=== PATIENT | female | born 1955 | race Caucasian/White ===

== ENCOUNTER 2017-07-13 19:37 | Emergency (ER) | payer MEDICAID, OTHER ==
[~2017-07-13] VITALS: Ht 162.6 cm; Wt 71.2 kg
[~2017-07-13 19:37] MED LIST: AMOXICILLIN500 MG ORAL; AZITHROMYCIN250 MG ORAL; CLARITIN10 MG ORAL; CYMBALTA20 MG ORAL; IBUPROFEN600 MG ORAL; PSEUDOEPHEDRINE30 MG PO
[2017-07-13] MEDS ORDERED: PROPRANOLOL HCL20 MG ORAL (19:46)
[2017-07-13] MEDS ORDERED: CYMBALTA30 MG ORAL (19:46)
[2017-07-13 20:05] VITALS: BP 142/62
[2017-07-13] MEDS ORDERED: LORATADINE10 M2 PO (20:19)
[2017-07-13] MEDS ORDERED: PREDNISONE50 MG ORAL (20:19)
--- NOTE | 2017-07-13 20:19 | Emergency Room Report ---
History of Present Illness General Chief Complaint: Skin Rash/Abscess Source: Patient Present Illness HPI 61 y/o female c/o rash x several months. States that she went to PCP who did not know what was wrong with the patient. Patient saw industrial waste inspector a couple weeks ago and was told she had allergic dermatitis due to using feminine wipes on her skin. States she was given steroid cream which improved her sxs but states her sxs are wide spread along her body and not just in one spot. States she ran out of cream and is requesting additional medication. Patient has a hx of asthma that has improved over the past 3 weeks from becoming vegan and that she does feel she has some wheezing but not difficulty breathing. Not taking asthma medications. Denies any current n/v/f/c/d, abd pain, back pain, neck pain , photophobia, phonophobia, CP, SOB or headache. Allergies: Coded Allergies: No Known Allergies (Unverified , 10/27/14) Patient History Past Medical History: asthma Past Surgical History: other Pertinent Family History: none Last Menstrual Period: n/a Now: No Immunizations: UTD Reviewed Nursing Documentation: PMH: Agreed, PSxH: Agreed Nursing Documentation-PMH Past Medical History: No History, Except For Hx Asthma: Yes Review of Systems All Other Systems: negative except mentioned in HPI Physical Exam Vital Signs Date Time Temp Pulse Resp B/P (MAP) Pulse Ox O2 Delivery O2 Flow Rate FiO2 07/13/17 19:39 98.1 69 16 149/55 95 Room Air Sp02 EP Interpretation: reviewed, normal General Appearance: no apparent distress, alert, GCS 15, non-toxic Head: normocephalic, atraumatic Eyes: bilateral eye normal inspection, bilateral eye PERRL ENT: hearing grossly normal, normal pharynx, no angioedema, normal voice Neck: full range of motion, supple/symm/no masses Respiratory: chest non-tender, normal breath sounds, speaking full sentences, wheezing - small wheeze LLL Cardiovascular #1: regular rate, rhythm, no edema Musculoskeletal: back normal, gait/station normal, normal range of motion, non- tender, calf tenderness Neurologic: alert, oriented x3, responsive, motor strength/tone normal, sensory intact, speech normal Psychiatric: judgement/insight normal, memory normal, mood/affect normal, no suicidal/homicidal ideation Skin: normal color, warm/dry, well hydrated, rash - erythematous rash along face, trunk and upper extremities. Medical Decision Making PA Attestation Dr. Chi is my supervising physician with whom patient management has been discussed with. Diagnostic Impression: Primary Impression: Allergic dermatitis ER Course Pt. presents to the ED c/o rash Ddx considered but are not limited to dermatitis, insect sting, viral exanthem, herpez zoster, cellulitis, abscess Vital signs: are WNL, pt. is afebrile H&PE are most consistent with allergic dermatitis ORDERS: none required at this time, the diagnosis is clinical ED INTERVENTIONS: none required at this time. DISCHARGE: At this time pt. is stable for d/c to home. Will provide printed patient care instructions, and any necessary prescriptions. Care plan and follow up instructions have been discussed with the patient prior to discharge. Last Vital Signs Date Time Temp Pulse Resp B/P (MAP) Pulse Ox O2 Delivery O2 Flow Rate FiO2 07/13/17 20:05 98.2 72 16 142/62 97 Room Air Status: unchanged Disposition: HOME, SELF-CARE Condition: Stable Scripts Prednisone* (PREDNISONE*) 50 Mg Tablet 50 MG ORAL DAILY, #5 TAB 0 Refills Prov: SABRY,TAMEEM P.A. 07/13/17 Loratadine (LORATADINE) 10 Mg Tablet 10 MG PO DAILY for 14 Days, #14 TAB Prov: SABRY,TAMEEM P.A. 07/13/17 Patient Instructions: Rash Additional Instructions: Take medications as directed. Follow up with PCP within 5-7 days. Advised patient to avoid using or touching whatever might have caused their rash. Patient is to protect their skin from anything that might irritate it or cause an allergy (ie wearing gloves if they need to work with harsh soaps). Advised patient to try using soothing skin products to help with the itching and discomfort which include: unscented, thick moisturizing cream, anti-itch lotion or cream, and a special kind of bath called an oatmeal bath. Advised patient to go to the ER if they experience severe symptoms like pain, widespread swelling, and large blisters, oozing, or crusting of the skin. Patient is to return sooner if their rash does not go away within 2 weeks, or if it gets worse. The most common symptoms of anaphylaxis are hives (urticaria) and swelling of the skin (angioedema), which occur in 80 to 90 percent of reactions. Respiratory symptoms occur in about 70 percent of reactions, and are especially common in people who also have asthma or another chronic respiratory disease. Extremely low blood pressure causing lightheadedness, dizziness, blurred vision, or loss of consciousness (passing out) occurs in up to about 70 percent of reactions. If you experience any of these symptoms which include SOB and throat swelling, please use your Epi-Pen as directed and call 911. DANIEL ENGLAND Jul 13, 2017 20:19
[2017-07-13 20:30] VITALS: BP 142/62
== END 2017-07-13 20:40 | disposition home or self-care (01) ==
LOC: EMR 20:34
DX: L23.9 Allergic contact dermatitis, unspecified cause (principal); J45.909 Unspecified asthma, uncomplicated
CPT/HCPCS: 99284